=== PATIENT | female | born 1970 | race African-American/Black ===

== ENCOUNTER → 2018-06-14 | Outpatient (CLI) | payer OTHER ==
[~2018-06-14] MED LIST: ALDACTONE50 MG PO; AMLODIPINE BESY10 MG PO; AUGMENTIN 500-1 EACH PO; CATAPRES0.2 MG PO; COREG25 MG PO; COZAAR 50 MG TA50 M2 PO; DEPAKOTE ER500 MG PO; HYDROXYCHLOROQ200 M1 PO; LASIX 40 MG TAB40 M2 PO; LISINOPRIL20 MG PO; METOPROLOL TAR100 MG PO; MINOXIDIL2.5 MG PO; POTASSIUM20 PO; PREDNISONE 20 M20 MG; PREDNISONE 20 M20 MG PO; PROTONIX40 M4 PO; TYLENOL325 MG PO
== END ==
LOC: ULTRA 13:33
DX: I13.0 Hypertensive heart and chronic kidney disease with heart failure and stage 1 through stage 4 chronic kidney disease, or unspecified chronic kidney disease (principal); N18.3 Chronic kidney disease, stage 3 (moderate); I50.9 Heart failure, unspecified